=== PATIENT | male | born 1970 | race African-American/Black ===

== ENCOUNTER 2020-02-27 06:54 | Outpatient (NON) | payer OTHER, SELFPAY ==
[2020-02-27 19:19] LABS: SARS-CoV-2 RNA PCR Negative
== END 2020-02-27 06:55 ==
PROVIDERS: Visit Provider Emergency Medicine
DX: Z20.828 Contact with and (suspected) exposure to other viral communicable diseases (principal); B34.9 Viral infection, unspecified
CPT/HCPCS: 87635; C9803; U0003

== ENCOUNTER 2021-09-09 06:54 | Outpatient (CLI) | payer OTHER, SELFPAY ==
--- NOTE | ~2021-09-09 | MR_ITS ---
EXAMINATION: MR shoulder RT wo con DATE: 09/09/2021 07:41 INDICATION: Chronic right shoulder pain. TECHNIQUE: Magnetic resonance imaging (MRI) of the right shoulder was performed without intravenous c ontrast. Sequences included axial PD-weighted FS FSE, coronal oblique PD-weighted FS FSE and T2-weigh shelia FS FSE, and sagittal oblique T2-weighted FS FSE and T1-weighted FSE. COMPARISON: None. FINDINGS: Coracoacromial arch: The acromion undersurface is curved in morphology with anterior hook (type III). There is mild acromi oclavicular joint osteoarthritis. There is mild subacromial/subdeltoid bursitis. Rotator cuff: There is a full-thickness tear of supraspinatus and infraspinatus tendons measuring 4.0 cm anterior t o posterior by 3.5 cm proximal to distal. Teres minor tendon is normal. There is moderate subscapular is tendinopathy. There is volume loss in mild fatty atrophy of the supraspinatus and infraspinatus mu scle bellies. Biceps tendon and glenoid labrum: Biceps tendon is in bicipital groove. There is a partial tear of intra-articular biceps tendon. There are tears of posterior superior and anteroinferior glenoid labrum. Fluid: There is a small glenohumeral joint effusion. Bones/cartilage: There is partial-thickness cartilage loss of posterior glenoid. There is cartilage surface irregulari ty of humeral head. IMPRESSION: 1. Full-thickness rotator cuff tear. 2. Mild glenohumeral joint chondrosis. Labral tears. 3. Mild acromioclavicular joint osteoarthritis. 4. Partial tear of proximal biceps tendon. 5. Mild subacromial/subdeltoid bursitis. 6. Small glenohumeral joint effusion. Reviewed, dictated and finalized at location A. EXAMINER
== END 2021-09-09 06:55 ==
PROVIDERS: PCP Emergency Medicine; Visit Provider Orthopaedic Surgery
DX: M75.101 Unspecified rotator cuff tear or rupture of right shoulder, not specified as traumatic (principal); M19.011 Primary osteoarthritis, right shoulder; M75.51 Bursitis of right shoulder; M25.411 Effusion, right shoulder
CPT/HCPCS: 73221

== ENCOUNTER 2023-09-27 01:19 | Day surgery (SDC) | payer BC, SELFPAY ==
[2023-09-20 12:58] VITALS: BMI 28.9
--- NOTE | 2023-09-27 12:04 | P.PNAN_ITS ---
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 Patient Data Age: 52 Gender: M Height: 1.88 m Weight: 102.25 kg Allergies Allergy/AdvReac Type Severity Reaction Status Date / Time No Known Allergies Allergy Mild Verified 09/20/23 12:58 Home Medications Medication Instructions Recorded Confirmed Type irbesartan 150 mg tablet 150 mg PO DAILY 09/20/23 09/20/23 History omeprazole 20 mg capsule,delayed 20 mg PO DAILY 09/20/23 09/20/23 History release rosuvastatin 5 mg tablet 5 mg PO DAILY 09/20/23 09/20/23 History Patient hx anesthesia problems: none Family hx anesthesia problems: none Results Review: All pre-operative results and documents have been reviewed as part of the pre- operative evaluation. [facility] Surgical History Surgical History (Updated 09/24/20 @ 15:00 by Fern Lyons, RT(R)) History of surgery groin Hx of arthroscopy of right knee 1986 Family History Family History Other Family history of alcoholism Family history of arthritis Social History Social History (Updated 09/24/20 @ 15:00 by Fern Lyons, RT(R)) Smoking status: Never smoker Alcohol intake: current Drinks per week: 2 Substance use: never Substance use type: does not use Living arrangements: with family Gender identity (if verbalized by the patient): Male Spiritual care concerns: No Anes - Eval Final PreProcedure Day of Procedure 09/27/23 12:04 Patient weight: normal Heart: regular rate and rhythm Lungs: clear to auscultation Airway: Mallampati scale class II Neurological: alert and oriented Last oral intake: >/= 8 hours ASA classification: II Emergent: no Anesthetic plan: proceed Anesthesia type and monitoring: general GIVS and standard monitoring Results Review: All pre-operative results and documents have been reviewed as part of the pre- operative evaluation. Informed Consent: The patient's anesthetic plan and its attendant risks and benefits were discussed with the patient/family/POA. Questions were solicited and answers provided to the satisfaction of the patient/family/POA.
[2023-09-27 12:07] VITALS: BP 168/114; PULSE 75; RESP 16; TEMP 36.2; O2SAT 99
--- NOTE | 2023-09-27 12:09 | SUR.PREOP ---
Patient 125 blood sugar on dexcom. Patient states he no longer takes diabetic medication. Dr. Flores notified.
[2023-09-27] MEDS: LACTATED RINGERS 1,000 ML 150 ML IV CONT (12:15)
--- NOTE | 2023-09-27 12:25 | PM.HPGS ---
History of Present Illness History of Present Illness Consent: Risks, benefits, and alternatives have been discussed and questions answered. Patient agrees to proceed with procedure. 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 Narrative: Alen Allison is a 52 year old male with garibay's on omeprazole doing well, last egd 3 years Review of Systems Review of Systems: All systems reviewed & are unremarkable except as noted in HPI and below PMFSH Past Medical History Medical History (Updated 09/27/23 @ 12:26 by Edmar Byrne MD) Garibay esophagus Surgical History Surgical History (Updated 09/24/20 @ 15:00 by Fern Lyons RT(R)) History of surgery groin Hx of arthroscopy of right knee 1986 Family History Family History Other Family history of alcoholism Family history of arthritis Social History Social History (Updated 09/24/20 @ 15:00 by Fern Lyons RT(R)) Smoking status: Never smoker Alcohol intake: current Drinks per week: 2 Substance use: never Substance use type: does not use Living arrangements: with family Gender identity (if verbalized by the patient): Male Spiritual care concerns: No Meds Home Medications and Allergies Home Medications Medication Instructions Recorded Confirmed Type irbesartan 150 mg tablet 150 mg PO DAILY 09/20/23 09/27/23 History omeprazole 20 mg capsule,delayed 20 mg PO DAILY 09/20/23 09/27/23 History release rosuvastatin 5 mg tablet 5 mg PO DAILY 09/20/23 09/27/23 History Allergies Allergy/AdvReac Type Severity Reaction Status Date / Time No Known Allergies Allergy Mild Verified 09/27/23 12:05 Vital Signs Vital Signs - 24 hr 09/27/23 12:07 Temperature 97.2 F L Pulse Rate 75 Respiratory Rate 16 Blood Pressure 168/114 H Pulse Oximetry 99 Oxygen Delivery Room Air Exam Const: General: comfortable and no acute distress HENMT: Face/Nose/Sinus: Normal nares present Eyes: General: appearance normal, both eyes and all related structures Neck: Neck: no JVD Resp: Auscultation: clear to auscultation bilaterally Cardio: Rate: regular rate Rhythm: regular rhythm GI: Inspection: non-distended GI Palp: Yes Soft to palpation Skin: General skin exam: normal color Neuro: General: gait normal Speech: normal speech Extrem: General: normal to inspection Psych: Mental Status: mental status grossly normal Assessment and Plan Assessment and plan (1) Garibay esophagus: Code(s): K22.70 - Garibay's esophagus without dysplasia Status: Acute Assessment and Plan: egd to assess on ppi asymptomatic
[2023-09-27 12:42] VITALS: BP 135/91; PULSE 79; RESP 17; O2SAT 98
[2023-09-27 12:52] VITALS: BP 142/107; PULSE 79; RESP 23; O2SAT 100
[2023-09-27 13:12] VITALS: BP 164/108; PULSE 77; RESP 21; O2SAT 100
== END 2023-09-27 13:12 | disposition home or self-care (01) ==
PROVIDERS: PCP Emergency Medicine; Visit Provider Internal Medicine Gastroenterology
PROC: 0DJ08ZZ Inspection of Upper Intestinal Tract, Via Natural or Artificial Opening Endoscopic (ICD-10-PCS; CPT 43235; principal; 2023-09-27 13:30)
DX: K21.00 Gastro-esophageal reflux disease with esophagitis, without bleeding (principal); Z98.890 Other specified postprocedural states
CPT/HCPCS: 43239; 88305; J2704; J7120